=== PATIENT | male | born 1975 | race Caucasian/White ===

== ENCOUNTER 2022-03-14 15:12 | Emergency (ER) | payer SELFPAY ==
[~2022-03-14] VITALS: Ht 167.6 cm; Wt 64.0 kg
[2022-03-14 15:27] VITALS: BP 155/84
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
[2022-03-14 16:32] VITALS: BP 130/70
--- NOTE | 2022-03-14 16:33 | NUR ---
patient condition improved d/c home with instructions after care reviewed understood left er via self slin applied tolerated well.
--- NOTE | 2022-03-14 16:34 | NUR ---
Patient discharged with v/s stable. Written and verbal after care instructions given and explained to parent/guardian. Parent/Guardian verbalized understanding. Ambulatory steady gait. All questions addressed prior to discharge. Advised to follow up with PMD.
== END 2022-03-14 16:32 | disposition home or self-care (01) ==
LOC: MED 15:12
DX: S42.018A Nondisplaced fracture of sternal end of left clavicle, initial encounter for closed fracture (principal); F17.210 Nicotine dependence, cigarettes, uncomplicated; Z71.6 Tobacco abuse counseling; X58.XXXA Exposure to other specified factors, initial encounter; Y93.55 Activity, bike riding; Y92.89 Other specified places as the place of occurrence of the external cause; Y99.8 Other external cause status
CPT/HCPCS: 73030; 99283